=== PATIENT | male | born 1955 | race Caucasian/White ===

== ENCOUNTER → 2016-10-24 | Outpatient (CLI) | payer BC ==
--- NOTE | 2016-10-24 19:16 | DX ---
PA and Lateral Chest on October 24, 2016 Clinical indications: Smoker with a 4 month cough history; comparison PA and lateral chest July 02, [address] scan of the chest September 27, 2010. Findings: Hyperexpansion consistent with previously documented emphysema is seen. Pleuroparenchymal c hanges at the right lung base are stable. There is also parenchymal scarring involving the right lowe r lung and right upper lobe. Minimal scarring or atelectasis is seen at the left lung base. Heart siz e and pulmonary vascularity are normal. A line of sutures projects over the right upper lobe medially as well as the upper mediastinum. Impression: Findings consistent with emphysema are noted. Old scarring is identified. Given the smoki ng history and chronic cough, repeat CT scan could be considered for further evaluation.
== END ==
LOC: CIMAGING 14:28
PROVIDERS: ATTEND Family Medicine
DX: J43.9 Emphysema, unspecified (principal); F17.200 Nicotine dependence, unspecified, uncomplicated
CPT/HCPCS: 71020-PO

== ENCOUNTER → 2017-10-31 | Outpatient (CLI) | payer BC | LOC: CIMAGING 11:52 | PROVIDERS: ATTEND Family Medicine | DX: R06.02 Shortness of breath (principal); I25.10 Atherosclerotic heart disease of native coronary artery without angina pectoris | CPT/HCPCS: 71046-PO ==